=== PATIENT | female | born 1970 | race Caucasian/White ===

== ENCOUNTER → 2025-06-19 11:31 | Outpatient (REF) | payer BC, SELFPAY | LOC: RCS 11:31 | PROVIDERS: ATTENDING PHYSICIAN Internal Medicine Cardiovascular Disease; FAMILY PHYSICIAN Family Medicine | DX: I27.21 Secondary pulmonary arterial hypertension (principal); I50.812 Chronic right heart failure | CPT/HCPCS: 93306 ==